=== PATIENT | female | born 1940 | race Caucasian/White ===

== ENCOUNTER 2017-01-26 09:59 | Day surgery (SDC) | payer MEDICARE ==
--- NOTE | ~2017-01-26 | EGD ---
EGD REPORT [facility] [address] [place]. [address] NAME: AGA ECHEVARRIA : 40 STATUS : REG [facility]#: [id number] AGE: 76 ADM/REG DATE : 01/26/17 MR#: [id number] REPORT SERV DATE: 01/26/17 DICTATED BY: REY MEI DATE: 01/26/17 REPORT STATUS : Draft TRANSCRIBED BY: [employer] DATE: 01/26/17 [facility] Center Patient Name: Aga Echevarria Date of : 1940 Attending MD: REY MEI MD Procedure Date No Time: 01/26/2017 Procedure: Upper GI endoscopy Indications: Epigastric abdominal pain, Dysphagia, Heartburn, Suspected esophageal reflux, Nausea Referring MD: Rukhsana Rivera Medicines: as per anesthesia Complications: No immediate complications. Procedure: Pre-Anesthesia Assessment: - ASA Grade Assessment: III - A patient with severe systemic disease. After obtaining informed consent, the endoscope was passed under direct vision. Throughout the procedure, the patient's blood pressure, pulse, and oxygen saturations were monitored continuously. The GIF [id number] was introduced through the mouth, and advanced to the third part of duodenum. The upper GI endoscopy was accomplished without difficulty. The patient tolerated the procedure. Findings: The examined esophagus was normal. The scope was withdrawn. Dilation was performed with a Vasquez dilator with no resistance at 44 Fr. A small hiatus hernia was present. The examined duodenum was normal. Impression: - Normal esophagus. Dilated. - Hiatus hernia. - Normal examined duodenum. Recommendation: - Follow an antireflux regimen. - Continue present medications. Procedure Code(s): --- Professional --- 61965, Esophagogastroduodenoscopy, flexible, transoral; diagnostic, including collection of specimen(s) by brushing or washing, when performed (separate procedure) 22846, Dilation of esophagus, by unguided sound or bougie, single or multiple passes Diagnosis Code(s): --- Professional --- EGD REPORT [address] [place]. [address] NAME: AGA ECHEVARRIA : 40 STATUS : REG [facility]#: [id number] AGE: 76 ADM/REG DATE : 01/26/17 MR#: [id number] REPORT SERV DATE: 01/26/17 DICTATED BY: ERY MEI. DATE: 01/26/17 REPORT STATUS : Draft TRANSCRIBED BY: [employer] DATE: 01/26/17 K44.9, Diaphragmatic hernia without obstruction or gangrene R10.13, Epigastric pain R13.10, Dysphagia, unspecified R12, Heartburn R11.0, Nausea CPT copyright 2013 [employer]. All rights reserved. The codes documented in this report are preliminary and upon director of collections review may be revised to meet current compliance requirements. REY MEI MD 01/26/2017 12:49 PM This report has been signed electronically. Number of Addenda: 0 Note Initiated On: 01/26/2017 12:26 PM Scope Withdrawal Time 0 hours 0 minutes [address] [place], [place] [address] [address]
[~2017-01-26 09:59] MED LIST: ATV1 PO; CRESTOR5 MG PO; FISH-EPA1000 MG PO; LEXAPRO10 PO; MULTIPLE VIT PO; NEUR100 PO; PROTONIX PO; SYN88 PO; T PO; TOPAMAX25 PO; XARELTO20 MG PO
== END 2017-01-26 23:59 | disposition home or self-care (01) ==
LOC: DMU 09:59
PROVIDERS: Internal Medicine Gastroenterology
PROC: 0D750ZZ Dilation of Esophagus, Open Approach (ICD-10-PCS; 2017-01-26)
PROC: 0DJ08ZZ Inspection of Upper Intestinal Tract, Via Natural or Artificial Opening Endoscopic (ICD-10-PCS; principal; 2017-01-26 11:00)
DX: R13.10 Dysphagia, unspecified (principal); K44.9 Diaphragmatic hernia without obstruction or gangrene; R10.13 Epigastric pain; R11.0 Nausea; K21.9 Gastro-esophageal reflux disease without esophagitis; I48.91 Unspecified atrial fibrillation; I34.0 Nonrheumatic mitral (valve) insufficiency; E03.9 Hypothyroidism, unspecified; F41.9 Anxiety disorder, unspecified; F32.9 Major depressive disorder, single episode, unspecified; Z88.2 Allergy status to sulfonamides; Z88.1 Allergy status to other antibiotic agents; Z79.899 Other long term (current) drug therapy; Z90.49 Acquired absence of other specified parts of digestive tract; Z90.710 Acquired absence of both cervix and uterus; Z98.890 Other specified postprocedural states